=== PATIENT | female | born 1980 | race Caucasian/White ===

== ENCOUNTER → 2024-11-23 06:07 | Day surgery (SDC) | payer MEDICARE, OTHER, SELFPAY ==
[2024-11-23] VITALS (12 sets, daily range): BP systolic 101–133; BP diastolic 64–100; BMI 30.6
[2024-11-23] MEDS: TYLENOL 1000 MG PO (10:48)
[2024-11-23] MEDS: CELEBREX 200 MG PO (10:48)
[2024-11-23] MEDS: NORMOSOL-R/PLASMALYTE-A 1000 IV (10:54)
[2024-11-23] MEDS: ZOFRAN 4 MG IV (19:33)
[2024-11-23] MEDS: DILAUDID 0.5 MG IV (19:35)
[2024-11-23] MEDS: DEMEROL 12.5 MG IV (20:03)
[2024-11-23] MEDS: COMPAZINE 5 MG IV (20:11)
== END ==
LOC: SDS 06:07
PROVIDERS: ATTENDING PHYSICIAN Student in an Organized Health Care Education/Training Program
DX: D17.24 Benign lipomatous neoplasm of skin and subcutaneous tissue of left leg (principal); M65.872 Other synovitis and tenosynovitis, left ankle and foot; S86.312A Strain of muscle(s) and tendon(s) of peroneal muscle group at lower leg level, left leg, initial encounter; X58.XXXA Exposure to other specified factors, initial encounter; M20.12 Hallux valgus (acquired), left foot
CPT/HCPCS: 27659; 29898; 27619; 88304; C1713